=== PATIENT | female | born 1955 | race Caucasian/White ===

== ENCOUNTER 2017-03-30 21:07 | Emergency (ER) | payer SELFPAY ==
[2017-03-30] MEDS ORDERED: ONDANSETRON 4 MG TAB.RAPDIS PO ONE (21:58)
[2017-03-30] MEDS ORDERED: ONDANSETRON 4 MG TAB.RAPDIS ONE (22:01)
[2017-03-30 22:37] LABS: ABSOLUTE BASOPHILS # (AUTO) 0.1 10^3/uL (0.0-0.2); ABSOLUTE EOSINOPHILS # (AUTO) 0.2 10^3/uL (0.0-0.6); ABSOLUTE LYMPHOCYTES (AUTO) 1.5 10^3/uL (0.5-4.7); ABSOLUTE MONOCYTES (AUTO) 0.6 10^3/uL (0.1-1.4); ABSOLUTE NEUT (AUTO) 6.3 10^3/uL (1.7-8.2); BASOPHILS % (AUTO) 0.8 % (0-2); HEMOGLOBIN 14.9 g/dL (12.0-15.5); HGB HCT DIFFERENCE 0.7; LYMPHOCYTES % (AUTO) 16.9 % (13-45); MEAN CORPUSCULAR HEMOGLOBIN 29.3 pg (27.0-33.4); MEAN CORPUSCULAR HGB CONC 33.9 g/dL (32.0-36.0); MEAN CORPUSCULAR VOLUME 87 fl (80-97); MONOCYTES % (AUTO) 7.1 % (3-13); RED BLOOD COUNT 5.08 10^6/uL (3.72-5.28); RED CELL DISTRIBUTION WIDTH 14.1 % (11.5-14.0); SEGMENTED NEUTROPHILS % (AUTO) 73.2 % (42-78); WHITE BLOOD COUNT 8.6 10^3/uL (4.0-10.5)
[2017-03-30 22:42] LABS: APPEARANCE,URINE SLIGHTLY-CLOUDY; BILIRUBIN,URINE NEGATIVE (NEGATIVE); GLUCOSE, URINE >=500 mg/dL (NEGATIVE); KETONES,URINE NEGATIVE (NEGATIVE); LEUKOCYTE ESTERASE,URINE NEGATIVE (NEGATIVE); NITRITE,URINE NEGATIVE (NEGATIVE); PROTEIN,URINE NEGATIVE (NEGATIVE); URINE SPECIFIC GRAVITY 1.027; UROBILINOGEN,URINE NEGATIVE mg/dL (<2.0)
[2017-03-30 22:54] LABS: ALANINE AMINOTRANSFERASE 52 U/L (9-52); ALBUMIN 4.5 g/dL (3.5-5.0); ALKALINE PHOSPHATASE 114 U/L (38-126); ANION GAP 13 (5-19); ASPARTATE AMINO TRANSFERASE 57 U/L (14-36); BILIRUBIN,DIRECT 0.3 mg/dL (0.0-0.4); BILIRUBIN,TOTAL 0.6 mg/dL (0.2-1.3); BLOOD UREA NITROGEN 13 mg/dL (7-20); CARBON DIOXIDE 21 mmol/L (22-30); CHLORIDE 100 mmol/L (98-107); CREATININE RESULT 0.62 mg/dL (0.52-1.25); GLUCOSE 172 mg/dL (75-110); POTASSIUM 4.4 mmol/L (3.6-5.0); SODIUM 133.9 mmol/L (137-145); TOTAL PROTEIN 7.4 g/dL (6.3-8.2)
[2017-03-31] MEDS ORDERED: MECLIZINE HCL 25 MG TABLET PO ONE (01:06)
[2017-03-31] MEDS ORDERED: ONDANSETRON HCL INJ/PF 4 MG/2 ML SDV IV ONE (01:06)
[2017-03-31] MEDS ORDERED: NORMAL SALINE 1000 ML 1,000 ML IV ONE (01:06)
--- NOTE | 2017-03-31 01:07 | ER Document Report ---
ED General - General Chief Complaint: Nausea Stated Complaint: NAUSEA,ABDOMINAL PAIN Time Seen by Provider: 03/30/17 23:45 Notes: Patient is a 61 year old female with a past medical history of breast cancer not actively on any chemotherapy or radiation therapy, history of hypertension, hyperlipidemia, cwk-zjolonk-cacdfrwsy diabetes who presents with multiple complaints. Her primary concern is that she continues to have intermittent nausea without vomiting. States that she frequently has nausea but not to this degree of severity. She also notes that she has fluctuating hot and cold body temperature which is caused her to become diaphoretic. Nothing seems to improve or worsen her symptoms. She has not followed up with her primary care doctor regarding today's concerns. She has been able to tolerate oral intake at home but notes that this is difficult to do secondary to her nausea. She denies any true fever at home, chest pain, shortness of breath, weakness, numbness, headache or altered mental status. Denies any vertigo. TRAVEL OUTSIDE OF THE [place] IN LAST 30 DAYS: No - Related Data Allergies/Adverse Reactions: clarithromycin [From Biaxin] Allergy (Mild, Verified 03/30/17 22:00) rash ciprofloxacin [Ciprofloxacin] Allergy (Verified 03/30/17 22:00) rash amoxicillin trihydrate [From Augmentin] Adverse Reaction (Mild, Verified 22:00) yeast infection Potassium Clavulanate * [From Augmentin] Adverse Reaction (Mild, Verified 22:00) yeast infection Past Medical History - General Information source: Patient - Social History Smoking Status: Never Smoker Frequency of alcohol use: None Drug Abuse: None Lives with: Spouse/Significant other Family History: Reviewed & Not Pertinent - Past Medical History Cardiac Medical History: Reports: Hx Hypercholesterolemia, Hx Hypertension Endocrine Medical History: Reports: Hx Diabetes Mellitus Type 2 Renal/ Medical History: Denies: Hx Peritoneal Dialysis Malignancy Medical History: Reports: Hx Breast Cancer Psychiatric Medical History: Reports: Hx Depression Past Surgical History: Reports: Hx Appendectomy, Hx Breast Surgery, Hx Hysterectomy, Hx Thyroid Surgery, Hx Tonsillectomy - Immunizations Hx Diphtheria, Pertussis, Tetanus Vaccination: No - Unknown Review of Systems - Review of Systems Notes: Constitutional: Negative for fever. HENT: Negative for sore throat. Eyes: Negative for visual changes. Cardiovascular: Negative for chest pain. Respiratory: Negative for shortness of breath. Gastrointestinal: Negative for abdominal pain, positive for nausea Genitourinary: Negative for dysuria. Musculoskeletal: Negative for back pain. Skin: Negative for rash. Neurological: Negative for headaches, weakness or numbness. 10 point ROS negative except as marked above and in HPI. Physical Exam - Vital signs Vitals: Temp Pulse Resp BP Pulse Ox 97.5 F 88 18 145/93 H 99 03/30/17 21:52 03/30/17 21:52 03/30/17 21:52 03/30/17 21:52 03/30/17 21:52 Interpretation: Hypertensive Notes: PHYSICAL EXAMINATION: GENERAL: Well-appearing, well-nourished and in no acute distress. HEAD: Atraumatic, normocephalic. EYES: Pupils equal round and reactive to light, extraocular movements intact, sclera anicteric, conjunctiva are normal. ENT: nares patent, oropharynx clear without exudates. Moist mucous membranes. NECK: Normal range of motion, supple without lymphadenopathy LUNGS: Breath sounds clear to auscultation bilaterally and equal. No wheezes rales or rhonchi. HEART: Regular rate and rhythm without murmurs ABDOMEN: Soft, nontender, normoactive bowel sounds. No guarding, no rebound. No masses appreciated. EXTREMITIES: Normal range of motion, no pitting or edema. No cyanosis. NEUROLOGICAL: Face symmetric. Tongue protrudes midline. Extraocular motions intact. Pupils are 2 mm and equally reactive. Normal speech, normal gait. 5 out of 5 strength in both the distal and proximal upper and lower extremities bilaterally. Sensation is grossly intact throughout. Finger to nose testing normal. Pronator drift normal. PSYCH: Normal mood, normal affect. SKIN: Warm, Dry, normal turgor, no rashes or lesions noted. Course - Re-evaluation Re-evalutation: 03/31/17 01:06 Patient presents with multiple vague complaints that did not appear to be concerning for any acute life-threatening pathology. Vitals are within normal limits at triage and at time of discharge. Physical examination is unremarkable. Patient has tolerated oral intake without difficulty. Patient was not noted to be in distress at any point during their ER visit. At this time, based on the reassuring evaluation, I do not suspect an acute WA, pulmonary embolus, aortic dissection, acute intra-abdominal pathology, stroke, or sepsis.Will discharge with return precautions and follow-up recommendations. Verbal discharge instructions given a the bedside and opportunity for questions given. Medication warnings reviewed. Patient is in agreement with this plan and has verbalized understanding of return precautions and the need for primary care follow-up in the next 24-72 hours. - Vital Signs Vital signs: Temp Pulse Resp BP Pulse Ox 97.5 F 96 18 136/76 H 97 03/30/17 21:52 03/31/17 02:42 03/31/17 02:42 03/31/17 02:42 03/31/17 02:42 - Laboratory Result Diagrams: 03/30/17 22:25 03/30/17 22:25 Laboratory results interpreted by me: 03/30/17 03/30/17 03/30/17 22:25 22:25 22:25 RDW 14.1 H Sodium 133.9 L Carbon Dioxide 21 L Glucose 172 H AST 57 H Urine Glucose (UA) >=500 H Discharge - Discharge Clinical Impression: Dehydration, Nausea Condition: Good Disposition: HOME, SELF-CARE Additional Instructions: Please return to the emergency room immediately if you experience any concerning symptoms including high fevers, severe headache, chest pain, difficulty breathing, abdominal pain, slurred speech, numbness or weakness in your arms or legs, or any other symptom that concerns you. Please follow-up with your primary care doctor regarding elevated blood sugars. Take Annitafrlou that you were sent home with as needed for nausea. Referrals: MOISES FIELD MD [Primary Care Provider] - Follow up as needed
[2017-03-31] MEDS ORDERED: ONDANSETRON ODT 4 MG TAB (6 TAB/DSPK) PO PRN (02:33)
[2017-03-31 02:43] VITALS: BP 136/76
== END 2017-03-31 02:43 | disposition home or self-care (01) ==
LOC: ER 21:07
DX: E86.0 Dehydration (principal); R11.0 Nausea; R10.9 Unspecified abdominal pain; Z85.3 Personal history of malignant neoplasm of breast
CPT/HCPCS: 99283; 96361; 96374; 36415; 85025; 80053; 81001; J2405; J7030; S0119

== ENCOUNTER → 2019-06-16 | Outpatient (CLI) | payer BC, MEDICARE ==
--- NOTE | 2019-06-17 08:59 | RADIOLOGY REPORT (SQ) ---
EXAM DESCRIPTION: PET CT SKULL/THIGH COMPLETED DATE/TIME: 06/16/2019 8:17 pm REASON FOR STUDY: (C50.411)ARVIND NEOPLM OF UPPER-OUTER QUADRANT OF RIGHT FEMALE BREAST C50.411 NIKI Courtney NEOPLM OF UPPER-OUTER QUADRANT OF RIGHT FEMALE COMPARISON: PET scan dated 11/23/2014 and 08/05/2012. CT head dated 11/29/2011. CT abdomen and pelvis dated 03/21/2007. RADIONUCLIDE AND DOSE: 10 mCi F18 FDG The route of agent administration: Intravenous FASTING BLOOD SUGAR: 125 mg/dl CONTRAST TYPE AND DOSE: No CT contrast given. TECHNIQUE: Blood glucose level was verified. Above dose of FDG was injected intravenously. 2-D seg mented attenuation correction images were obtained from the base of the skull to the midthighs. Nonc ontrast CT images were obtained for attenuation correction and fusion with emission images. CT image s were performed without oral or intravenous contrast and are not sensitive for parenchymal lesions. A series of overlapping emission PET images were obtained. Images reviewed and manipulated at [facility] work station by the radiologist. Images stored on PACS. LIMITATIONS: None. FINDINGS: HEAD AND NECK: No areas of abnormal metabolic activity in the soft tissues of the head and neck. CHEST: There has been previous right mastectomy and reconstruction. There is a partially calcified n odular density in the lateral breast measuring 1.3 cm (axial series 3, image 79) with mild activity, mean SUV 2.25. Otherwise no areas of abnormal metabolic activity in the chest. ABDOMEN AND PELVIS: Stable 3.5 cm left adrenal mass. Mean SUV 5.3. Prior SUV value (08/05/2012) was 8.14. No other areas of abnormal metabolic activity in the abdomen or pelvis. Expected physiologic activity is present in the genitourinary system and bowel. PROXIMAL LOWER EXTREMITIES: No areas of abnormal metabolic activity in the soft tissues of the lower extremities. BONES: No abnormal metabolic activity in the visualized skeleton. ADDITIONAL CT FINDINGS: Stable 1.4 cm calcified lesion overlying the right frontal lobe. Unchanged s dennis prior head CT dated 12/19/2011. No additional significant findings on the noncontrast CT images. OTHER: Background blood pool activity mean SUV 1.92. Background liver activity mean SUV 2.77. No ot her significant findings. IMPRESSION: 1. STABLE LEFT ADRENAL MASS. THE PATIENT HAD A RECENT CT OF THE CHEST WITH CONTRAST AT ANOTHER [facility] ([facility] [place]) ON 06/05/2019 WHICH STATES THAT THIS IS A NEW FINDING. THIS IS NOT A NE W FINDING. THE PATIENT HAS HAD NUMEROUS PRIOR STUDIES AT [facility] AND THIS MASS IS U NCHANGED SINCE AT LEAST FEBRUARY 2007. CURRENT MEAN SUV VALUE IS 5.3 WITH PRIOR VALUE 8.14. 2. FOCAL NODULAR DENSITY IN THE LATERAL RIGHT BREAST WITH MILD ACTIVITY SIMILAR TO BACKGROUND. PRESU MABLY THIS IS RELATED TO THE PATIENT'S PRIOR RECONSTRUCTION. HOWEVER, WOULD RECOMMEND ULTRASOUND OF THIS AREA FOR MORE COMPLETE EVALUATION. TUMOR RECURRENCE IS PROBABLY UNLIKELY BUT RECOMMEND FOLLOW-U P. 3. STABLE CALCIFIED EXTRA-AXIAL LESION OVERLYING THE RIGHT FRONTAL LOBE, UNCHANGED SINCE NOVEMBER 2011, MOST CONSISTENT WITH A MENINGIOMA. 4. NO OTHER SIGNIFICANT FINDINGS. TECHNICAL DOCUMENTATION: JOB ID: [id number] [employer]- All Rights Reserved Reading location - IP/workstation name: [email or web address]
== END ==
LOC: RAD 16:32
PROVIDERS: ATTEND Internal Medicine Hematology & Oncology
DX: C50.411 Malignant neoplasm of upper-outer quadrant of right female breast (principal)
CPT/HCPCS: 78815; A9552

== ENCOUNTER → 2020-03-30 | Outpatient (CLI) | payer MEDICARE ==
--- NOTE | 2020-03-30 13:38 | RADIOLOGY REPORT (SQ) ---
EXAM DESCRIPTION: HIP LEFT AP/LATERAL IMAGES COMPLETED DATE/TIME: 03/30/2020 1:28 pm REASON FOR STUDY: PAIN IN LEFT HIP (M25.552) G45.3 AMAUROSIS FUGAX M25.552 PAIN IN LEFT HIP COMPARISON: None. NUMBER OF VIEWS: Two views. TECHNIQUE: AP and frog-leg view of the left hip. LIMITATIONS: None. FINDINGS: MINERALIZATION: Normal. LEFT HIP: No fracture or dislocation. No worrisome bone lesions. No contour deformity. No joint spa ce narrowing. OPPOSITE HIP: No fracture or dislocation. No worrisome bone lesions. SOFT TISSUES: No findings. OTHER: No other significant finding. IMPRESSION: NEGATIVE STUDY OF THE LEFT HIP. NO EXPLANATION FOR PAIN. TECHNICAL DOCUMENTATION: JOB ID: [id number] 2010 [employer]- All Rights Reserved Reading location - IP/workstation name: [email or web address]
--- NOTE | 2020-03-30 16:29 | RADIOLOGY REPORT (SQ) ---
EXAM DESCRIPTION: CAROTID DOPPLER IMAGES COMPLETED DATE/TIME: 03/30/2020 4:18 pm REASON FOR STUDY: AMAUROSIS FUGAX G45.3 AMAUROSIS FUGAX M25.552 PAIN IN LEFT HIP COMPARISON: None. TECHNIQUE: Grayscale ultrasound, Doppler velocity and spectra, and color Doppler images acquired of the extra-cranial carotid and vertebral arteries. Images stored on PACS. LIMITATIONS: None. FINDINGS: RIGHT CAROTID CCA Velocities: Within normal limits. ICA Velocities Peak systolic 107 cm/s. End diastolic 34 cm/s. Proximal ICA/CCA peak systolic ratio 1.84. Tortuous right CCA and distal ICA. There is minimal wall thickening with a small amount of plaque in the carotid bulb. Less than 50% stenosis. LEFT CAROTID CCA Velocities: Within normal limits. ICA Velocities Peak systolic 57 cm/s. End diastolic 21 cm/s. Proximal ICA/CCA peak systolic ratio 0.86. The distal ICA is somewhat tortuous. There is minimal wall thickening. Less than 50% stenosis. VERTEBRAL ARTERIES: Antegrade flow. Normal waveforms. SUBCLAVIAN ARTERIES: No finding. OTHER: No other significant finding. IMPRESSION: There is some tortuosity bilaterally. There is no hemodynamically significant plaque. COMMENT: Quality ID #[id number]: Velocity criteria are extrapolated from the diameter data as defined by t he Society of Radiologists in Ultrasound Consensus Conference. Radiology 2003: 229; 340-346. TECHNICAL DOCUMENTATION: JOB ID: [id number] 2010 [employer]- All Rights Reserved Reading location - IP/workstation name: [email or web address]
--- NOTE | 2020-03-30 17:53 | XCELERA REPORT ---
[address] [address] Transthoracic Echocardiogram Report Name: JOSEFINA DONG Age: 64 yrs Gender: Female : 1955 Patient Status: Outpatient Patient Location: [facility] Study Date: 03/30/2020 01:50 PM Height: 64 in Weight: 166 lb BSA: 1.8 m2 Reason For Study: AMAUROSIS FUGAX Ordering Physician: KURTIS CLINE Performed By: Sherman Mon Interpretation Summary No significant posterior pericardial effusion. AV is calcified in the NC cusp of 3 cusps, with no and no AR. Mild mitral annular calcification. No MS, No MVP. Mild MR with No left atrial enlargement, MERCEDEZ is 27cc/m2 and normal. Mild septal LVH (IVS/PW = 12/10 mm), LVEF 60-65%, stage I LV diastolic dysfunction, Incomplete visualization of all segments of LV, refer to pictorals. No LV enlargement. Tricuspid valve, trace TV regurgitation. No TR trace to derive RVSP. Right heart is normal size. No ASD. IVC not dilated. Trace IA. Summary of findings = Mild nonstenotic calcific AV disease. Mild MAC, no MS/mild MR, no LA enlargement. Mild septal hypertrophy, normal LVEF, with stage I LV Diastolic Dysfunction. Incomplete LV segmental analysis. Normal R heart. Mild physiological MR, TR, IA. Dr Tono Rodgers. MMode/2D Measurements & Calculations RVDd: 3.2 cm LVIDd: 4.1 cm FS: 28.6 % Ao root diam: 3.0 cm IVSd: 1.2 cm LVIDs: 2.9 cm EDV(Teich): 75.0 mlAo root area: LVPWd: 1.00 cm ESV(Teich): 33.3 ml 7.1 cm2 EF(Teich): 55.6 % LA dimension: 3.7 cm LVOT diam: 2.1 cm LVLd ap4: 8.7 cm SV(MOD-sp4): LVOT area: EDV(MOD-sp4): 48.0 ml 82.0 ml 3.5 cm2 LVLs ap4: 7.4 cm ESV(MOD-sp4): 34.0 ml EF(MOD-sp4): 58.5 % Doppler Measurements & Calculations MV E max lefty: MV P1/2t max lefty: Ao V2 max: LV V1 max P.1 cm/sec 86.1 cm/sec 127.3 cm/sec 4.9 mmHg MV A max lefty: MV P1/2t: 79.8 msec Ao max PG: LV V1 max: 73.7 cm/sec MVA(P1/2t): 2.8 cm2 6.5 mmHg 110.3 cm/sec MV E/A: 1.1 MV dec slope: KAITY(V,D): 3.0 cm2 LV dP/dt: 699.0 mmHg/s 316.1 cm/sec2 MV dec time: 0.20 sec PA V2 max: PI end-d lefty: TR max lefty: MV P1/2t-pr_phl: 104.1 cm/sec 73.0 cm/sec 179.9 cm/sec 79.8 msec PA max PG: TR max P.3 mmHg 12.9 mmHg I WMSI = 1.20 % Normal = 80 Segments Size X - Cannot 2 - 4 - 1-2 small Interpret 1 - Normal Hypokinetic 3 - AkineticDyskinetic 3-5 moderate 5 - 6-14 large Aneurysmal 15-16 diffuse : KURTIS CLINE Andre
== END ==
LOC: SP 12:56
PROVIDERS: ATTEND Physician Assistant
DX: M25.552 Pain in left hip (principal); G45.3 Amaurosis fugax
CPT/HCPCS: 93306; 93880

== ENCOUNTER 2020-04-16 09:08 | Day surgery (SDC) | payer MEDICARE ==
[~2020-04-16 09:08] MED LIST: CHONDR SU A NA/HYALUR INTRAOC KIT (SURGICARE) ONE; EPINEPHRINE INJ/PF 1 MG/1 ML AMPULE ONE; KETOROLAC TROMETHAMINE 0.45% 4 DROP/0.4 ML DROPERETTE OS PRN; LIDOCAINE 1%/PHENYLEPHRINE 1.5% 0.8 ML SYRINGE ONE
[2020-04-16] MEDS: BESIFLOXACIN HCL 0.6% OPH SUSP 5 ML BOTTLE OS PRN ×4 (09:32→10:30)
[2020-04-16] MEDS: CYCLOPENTOLATE 0.2%/PHENYLEPHRINE 1% OPH SOLN 2 ML OS PRN ×3 (09:32→09:52)
[2020-04-16] MEDS: TROPICAMIDE 1% OPH SOLN 15 ML OS PRN ×3 (09:32→09:52)
[2020-04-16] MEDS: TETRACAINE HCL 0.5% OPH SOLN 4 ML OS PRN ×3 (09:33→10:00)
[2020-04-16] MEDS ORDERED: MIDAZOLAM 2 MG/2 ML INJ ONE (09:53)
[2020-04-16] MEDS ORDERED: FENTANYL CITRATE INJ/PF 100 MCG/2 ML AMPUL ONE (09:53)
[2020-04-16] MEDS: DORZOLAMIDE HCL 2%/TIMOLOL MALEAT 0.5% OPH SOLN 10 ML OS PRN ×2 (10:30)
--- NOTE | 2020-04-16 12:30 | Operative Report ---
Operative Report-[facility] Operative Report: DATE OF SURGERY: 04/16/2020 PREOPERATIVE DIAGNOSIS: Cataracts, left eye POSTOPERATIVE DIAGNOSIS: Cataract, left eye OPERATION: Cataract extraction with insertion of an IOL of the left eye. Intraocular Lens Model: [11.5 sn60wf] Patient underwent surgery for difficulty seeing television SURGEON: Sandro Sanabria MD ANESTHESIA: Topical PROCEDURE: After obtaining appropriate consent, the patient's left eye was prepped and draped in a sterile fashion as well as the surgeon in the sterile manner and cataract surgery was started. First a paracentesis blade was used to make a side-port incision. Viscoelastic was used to inflate the anterior chamber. Next a 2.4 mm incision was made with a 2.4 mm blade, clear corneal temporarily. A continuous capsulorrhexis was made using a cystotome and Utrata forceps. Following this hydrodissection was carried out to make the lens fully loose and mobile and it was rotated 90 degrees. Following this, a divide and conquer technique was used to phacoemulsify the lens. The remaining cortex was removed with an irrigation/aspiration. Provisc was instilled into the capsular bag to inflate the bag.The intraocular lens was placed. The remaining viscoelastic material was removed with irrigation/aspiration. Following this, the incision was found to be watertight. Besivance and Cosopt was instilled into the eye and a protective shield was placed over the eye. The patient was returned to the postoperative recovery in a stable condition.
== END 2020-04-16 11:03 | disposition home or self-care (01) ==
LOC: SC 09:08
PROVIDERS: ATTEND Internal Medicine
DX: H25.13 Age-related nuclear cataract, bilateral (principal); G45.3 Amaurosis fugax; H40.013 Open angle with borderline findings, low risk, bilateral; E11.9 Type 2 diabetes mellitus without complications; I10 Essential (primary) hypertension; E03.9 Hypothyroidism, unspecified; G62.9 Polyneuropathy, unspecified; Z87.891 Personal history of nicotine dependence; Z85.3 Personal history of malignant neoplasm of breast
CPT/HCPCS: 66984; 82962; 00142; V2632; J2250; J3490 ×3; A9270; J0171; J3010; 142

== ENCOUNTER 2020-05-14 08:16 | Day surgery (SDC) | payer MEDICARE ==
[~2020-05-14 08:16] MED LIST changes: -EPINEPHRINE INJ/PF 1 MG/1 ML AMPULE ONE; +FENTANYL CITRATE INJ/PF 100 MCG/2 ML AMPUL ONE; +KETOROLAC TROMETHAMINE 0.45% 4 DROP/0.4 ML DROPERETTE OD PRN; -KETOROLAC TROMETHAMINE 0.45% 4 DROP/0.4 ML DROPERETTE OS PRN; -LIDOCAINE 1%/PHENYLEPHRINE 1.5% 0.8 ML SYRINGE ONE; +MIDAZOLAM 2 MG/2 ML INJ ONE; +ONDANSETRON HCL INJ/PF 4 MG/2 ML SDV ONE
[2020-05-14] MEDS: TROPICAMIDE 1% OPH SOLN 15 ML OD PRN ×3 (09:20→09:40)
[2020-05-14] MEDS: CYCLOPENTOLATE 0.2%/PHENYLEPHRINE 1% OPH SOLN 2 ML OD PRN ×3 (09:20→09:40)
[2020-05-14] MEDS: TETRACAINE HCL 0.5% OPH SOLN 4 ML OD PRN ×3 (09:20→09:53)
[2020-05-14] MEDS: BESIFLOXACIN HCL 0.6% OPH SUSP 5 ML BOTTLE OD PRN ×4 (09:20→10:13)
[2020-05-14] MEDS: LIDOCAINE 1% INJ-PF (10 MG/ML) 30 ML SDV ONE ×2 (10:02→10:05)
[2020-05-14] MEDS: EPINEPHRINE INJ/PF 1 MG/1 ML AMPULE ONE ×2 (10:03→10:05)
[2020-05-14] MEDS: DORZOLAMIDE HCL 2%/TIMOLOL MALEAT 0.5% OPH SOLN 10 ML OD PRN ×2 (10:13)
[2020-05-14] MEDS: PREDNISOLONE ACETATE 1% OPH SUSP 5 ML OD PRN ×2 (10:13)
--- NOTE | 2020-05-14 13:41 | Operative Report ---
Operative Report-[facility] Operative Report: DATE OF SURGERY: 05/14/2020 PREOPERATIVE DIAGNOSIS: Cataract, right eye POSTOPERATIVE DIAGNOSIS: Cataract, right eye OPERATION: Cataract extraction with insertion of an IOL of the right eye. Intraocular Lens Model: [12.5 diopter SN 60 WF] Patient underwent surgery for difficulty seeing words on the television SURGEON: Sandro Sanabria MD ANESTHESIA: Topical PROCEDURE: After obtaining appropriate consent, the patient's right eye was prepped and draped in a sterile fashion as well as the surgeon in the sterile manner and cataract surgery was started. First a paracentesis blade was used to make a side-port incision. Viscoelastic was used to inflate the anterior chamber. Next a 2.4 mm incision was made with a 2.4 mm blade, clear corneal temporarily. A continuous capsulorrhexis was made using a cystotome and Utrata forceps. Following this hydrodissection was carried out to make the raúl fully loose and mobile and it was rotated. Following this, a divide and conquer technique was used to phacoemulsify the raúl. The remaining cortex was removed with an irrigation/aspiration. Provisc was instilled into the capsular bag to inflate the bag. The intraocular lens was placed. The remaining viscoelastic material was removed with irrigation/aspiration. Following this, the incision was found to be watertight. Besivance and Cosopt was instilled into the eye and a protective shield was placed over the eye. The patient was reurned to the postoperative recovery in a stable condition.
== END 2020-05-14 10:51 | disposition home or self-care (01) ==
LOC: SC 08:16
PROVIDERS: ATTEND Internal Medicine
DX: H25.11 Age-related nuclear cataract, right eye (principal); Z96.1 Presence of intraocular lens; E11.9 Type 2 diabetes mellitus without complications; I10 Essential (primary) hypertension; E03.9 Hypothyroidism, unspecified; K21.9 Gastro-esophageal reflux disease without esophagitis; Z87.891 Personal history of nicotine dependence; Z82.49 Family history of ischemic heart disease and other diseases of the circulatory system; Z83.518 Family history of other specified eye disorder; Z79.4 Long term (current) use of insulin; Z79.84 Long term (current) use of oral hypoglycemic drugs; Z85.3 Personal history of malignant neoplasm of breast; G43.909 Migraine, unspecified, not intractable, without status migrainosus
CPT/HCPCS: 66984; 82962; V2632; J2250; J3490 ×3; A9270; J0171; J3010; J2405; 142